=== PATIENT | male | born 1985 | race Two or more races ===

== ENCOUNTER 2017-06-25 12:12 | Emergency (ER) | payer SELFPAY ==
[~2017-06-25] VITALS: Ht 162.6 cm; Wt 70.3 kg
[2017-06-25 12:12] VITALS: BP 122/77
== END 2017-06-25 12:50 | disposition home or self-care (01) ==
LOC: ER 12:16
DX: M70.52 Other bursitis of knee, left knee (principal)
CPT/HCPCS: A4606; Z7610

== ENCOUNTER 2017-07-01 14:09 | Emergency (ER) | payer SELFPAY ==
[~2017-07-01] VITALS: Ht 162.6 cm; Wt 68.0 kg
--- NOTE | 2017-07-01 14:20 | NUR ---
AAOX3, CAME TO ER C/O LEFT KNEE PAIN/REDNESS/SWELLING ~ 1 WEEK (STARTED ON KEFLEX & BACTRIM ON 06/25) PRESCRIBED BY DR ADAN. RR IS EVEN AND UNLABORED WITH NAD NOTED. SKIN IS WARM AND NON DIAPHORETIC. AWAITING MD FOR EVAL.
[2017-07-01 16:58] VITALS: BP 117/68
--- NOTE | 2017-07-01 16:58 | NUR ---
Patient discharged to home in stable condition. Written and verbal after care instructions given. Patient verbalizes understanding of instruction.
== END 2017-07-01 16:59 | disposition home or self-care (01) ==
LOC: ER 14:14
DX: M25.561 Pain in right knee (principal)
CPT/HCPCS: 20610; 73560; 99284; A4606; Z7610